=== PATIENT | female | born 1950 | race Caucasian/White ===

== ENCOUNTER 2020-11-11 11:56 | Observation (INO) | payer MEDICARE, OTHER ==
[~2020-11-11] VITALS: Ht 152.4 cm; Wt 67.1 kg
[2020-11-11 13:23] LABS: RED BLOOD COUNT 5.04 M/UL (4.00-5.10); WHITE BLOOD COUNT 8.6 K/UL (4.5-11.0)
[2020-11-11 14:02] LABS: BUN/CREATININE RATIO 36 (0-10)
[2020-11-11] MEDS ORDERED: ZOCOR 40 MG TAB40 MG PO (15:31)
[2020-11-11] MEDS ORDERED: OMEPRAZOLE20 MG PO (15:31)
[2020-11-11] MEDS ORDERED: GLUCOPHAGE500 MG PO (15:32)
[2020-11-11] MEDS ORDERED: NAPRELAN500 MG PO (15:32)
[2020-11-11] MEDS ORDERED: ASPIRIN CHEWABL81 MG PO (15:32)
[2020-11-11] MEDS ORDERED: FARXIGA10 MG PO (15:33)
[2020-11-11] MEDS ORDERED: PROAIR HFA8.5 GM INH (15:33)
[2020-11-11] MEDS ORDERED: VITAMIN B-121000 MC3 PO (15:33)
[2020-11-11] MEDS ORDERED: VASCEPA1 GM PO (15:34)
[2020-11-11] MEDS ORDERED: LEVEMIR100 UNIT/1 SC (15:34)
[2020-11-11] MEDS ORDERED: COZAAR 25MG TAB25 MG PO (15:35)
[2020-11-12 02:30] LABS: WHITE BLOOD COUNT 7.4 K/UL (4.5-11.0)
[2020-11-12 02:32] LABS: HEMOGLOBIN 12.7 gm/dl (12.3-15.3); RED BLOOD COUNT 4.35 M/UL (4.00-5.10)
[2020-11-12 03:31] LABS: BUN/CREATININE RATIO 26 (0-10)
[2020-11-12] MEDS ORDERED: NITROGLYCERIN0.4 MG SL (11:31)
== END 2020-11-12 13:08 | disposition home or self-care (01) ==
LOC: ER1 11:56 → MED SURG 4 14:41 → CDU 14:41 → MED SURG 4 16:32
PROVIDERS: Physician Assistant; Physician Assistant Medical; ADMIT Internal Medicine
DX: R07.9 Chest pain, unspecified (principal); K21.9 Gastro-esophageal reflux disease without esophagitis; E11.9 Type 2 diabetes mellitus without complications; I10 Essential (primary) hypertension; E78.5 Hyperlipidemia, unspecified; E66.9 Obesity, unspecified; Z68.28 Body mass index [BMI] 28.0-28.9, adult; Z79.82 Long term (current) use of aspirin; Z79.4 Long term (current) use of insulin; Z79.899 Other long term (current) drug therapy; Z20.822 Contact with and (suspected) exposure to COVID-19
CPT/HCPCS: 36415; 71045; 80048; 80053; 80061; 82550; 82553; 82962; 83036; 83735; 83874; 84484; 85025; 85027; 93005; 99285; G0378; U0002

== ENCOUNTER 2020-12-02 22:26 | Emergency (ER) | payer MEDICARE, OTHER ==
[~2020-12-02 22:26] MED LIST: ASPIRIN CHEWABL81 MG PO; COZAAR 25MG TAB25 MG PO; FARXIGA10 MG PO; GLUCOPHAGE500 MG PO; LEVEMIR100 UNIT/1 SC; NAPRELAN500 MG PO; NITROGLYCERIN0.4 MG SL; OMEPRAZOLE20 MG PO; PROAIR HFA8.5 GM INH; VASCEPA1 GM PO; VITAMIN B-121000 MC3 PO; ZOCOR 40 MG TAB40 MG PO
[2020-12-02 23:00] LABS: HEMOGLOBIN 12.4 gm/dl (12.3-15.3); RED BLOOD COUNT 4.21 M/UL (4.00-5.10); WHITE BLOOD COUNT 8.9 K/UL (4.5-11.0)
[2020-12-02 23:24] LABS: BUN/CREATININE RATIO 42 (0-10)
== END 2020-12-03 04:00 | disposition home or self-care (01) ==
LOC: ER1 22:26
PROVIDERS: Emergency Medicine
DX: R07.2 Precordial pain (principal); E11.9 Type 2 diabetes mellitus without complications
CPT/HCPCS: 71045; 80053; 81001; 82550; 82553; 83605; 83690; 84484; 85025; 85379; 85610; 85730; 93005; 99285; Q9967

== ENCOUNTER 2021-01-07 11:32 | Emergency (ER) | payer MEDICARE, OTHER ==
[2021-01-07 12:44] LABS: HEMOGLOBIN 12.9 gm/dl (12.3-15.3); RED BLOOD COUNT 4.4 M/UL (4.00-5.10); WHITE BLOOD COUNT 9.5 K/UL (4.5-11.0)
[2021-01-07 13:13] LABS: BUN/CREATININE RATIO 30 (0-10)
== END 2021-01-07 15:59 | disposition home or self-care (01) ==
LOC: ER1 11:32
PROVIDERS: Family Medicine
DX: E11.65 Type 2 diabetes mellitus with hyperglycemia (principal); R19.7 Diarrhea, unspecified; R29.810 Facial weakness; R29.700 NIHSS score 0; E78.5 Hyperlipidemia, unspecified; I10 Essential (primary) hypertension
CPT/HCPCS: 70450; 80053; 81001; 82550; 82553; 83874; 84439; 84443; 84484; 85025; 93005; 99285